=== PATIENT | female | born 1980 | race Caucasian/White ===

== ENCOUNTER 2021-10-27 17:07 | Observation (INO) | payer BC ==
--- OUTSIDE RECORDS SUMMARY | 2021-10-27 17:10 | XMS REPORT | Continuity of Care Document ---
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 Attending Clinician BLOSSOM Attending Clinician Unavailable Doctor Unassigned, Name Attending Clinician Unavailable Payers Payer Name Policy Type Policy Number Effective Date Expiration Date S ource Problems Condition Condition Condition Status Onset Resolution Last Treating Co mments Source Name Details Category Date Date Treatment Clinician Date No known No known Disease Unive rs active active ity of problems problems [facility] Allergies, Adverse Reactions, Alerts Allergy Allergy Status Severity Reaction(s) Onset Inactive Treating Comm ents Source Name Type Date Date Clinician Penicill Propensi Active Unknown - Uni vers in ty to See comments 02-04 ity of adverse 00:00: [place] reaction 00 Medical s Branch PENICILL DRUG Active Unknown-Cmnt Un angeli IN INGREDI 02-04 ity of 00:00: [place] 00 Medical Branch NO KNOWN Drug Active Univers ALLERGIE Class ity of S [facility] Social History Social Habit Start Date Stop Date Quantity Comments Source Exposure to 2021-10-17 2021-10-27 Not sure [facility] SARS-CoV-2 (event) 00:00:00 16:27:00 Medica l Branch Tobacco use and 2021-02-04 2021-02-04 Never used [facility] [place] exposure 00:00:00 00:00:00 Medical Branch Sex Ass[birth year] At [birth year] [facility] 00:00:00 00:00:00 Medical Branch Smoking Status Start Date Stop Date Source Unknown if ever smoked [facility] [place] Never smoker [facility] [place] Medications Ordered Filled Start Stop Current Ordering Indication Dosage Frequency Signature Comments Components Source Medication Medication Date Date Medication? Clinician (SIG) Name Name christy Yes [id number] Apply to Univers ne 7-31 lesions ity of acet[place] 00:00[place] 3[place]d [place] 0.1 % 00 meals Medical dental Branch paste naproxen Yes [id number] 375mg Take 1 U nivers 375 mg 7-31 tablet by ity of tablet 00:00: mouth 2 [place] (two) Medical times Branch daily with meals. triamcinolo Yes [id number] Apply to Univers ne 7-31 lesions ity of acetonide 00:00: 3x/d [place] 0.1 % 00 meals Medical dental Branch paste naproxen Yes [id number] 375mg Take 1 U nivers 375 mg 7-31 tablet by ity of tablet 00:00: mouth 2 [place] (two) Medical times Branch daily with meals. PARAMJIT 24 FE Yes 1{tbl} Take 1 Un angeli 1 mg-20 mcg 7-23 tablet by ity of (24)/75 mg 00:00: mouth [place] (4) per 00 daily. Medical tablet Branch PARAMJIT 24 FE Yes 1{tbl} Take 1 Un angeli 1 mg-20 mcg 7-23 tablet by ity of (24)/75 mg 00:00: mouth [place] (4) per 00 daily. Medical tablet Branch levothyroxi Yes 100ug Take 100 U nivers ne 100 mcg 7-16 mcg by ity of tablet 00:00: mouth. Medical Branch levothyroxi Yes 100ug Take 100 U nivers ne 100 mcg 7-16 mcg by ity of tablet 00:00: mouth. [place] [facility] [place] Vital Signs Vital Name Observation Time Observation Value Comments Source Systolic blood 2021-10-27 21:40:00 185 mm[Hg] Univer sity of pressure [facility] Diastolic blood 2021-10-27 21:40:00 103 mm[Hg] Unive rsity of pressure [place] [facility] [place] Heart rate 2021-10-27 21:40:00 84 /min [facility] [place] [facility] Body temperature 2021-10-27 21:40:00 36.83 Cathy Univ ersity of [place] [facility] Respiratory rate 2021-10-27 21:40:00 17 /min Univ [facility] [place] [facility] Body height 2021-10-27 21:40:00 167.6 cm [facility] [place] [facility] Body weight 2021-10-27 21:40:00 58.968 kg [facility] [place] [facility] BMI 2021-10-27 21:40:00 20.98 kg/m2 [facility] [place] [facility] Oxygen saturation in 2021-10-27 21:40:00 100 /min University of Arterial blood by [facility] Pulse oximetry Branch Systolic blood 2021-02-04 20:29:00 135 mm[Hg] Univer sity of pressure [place] [facility] [place] Diastolic blood 2021-02-04 20:29:00 84 mm[Hg] Unive rsity of pressure [facility] Heart rate 2021-02-04 20:29:00 74 /min [facility] [place] [facility] Body temperature 2021-02-04 20:29:00 36.61 Cathy Univ ersity [facility] [place] [facility] [place] Body height 2021-02-04 20:29:00 167.6 cm [facility] [place] [facility] Body weight 2021-02-04 20:29:00 60.782 kg [facility] [place] [facility] BMI 2021-02-04 20:29:00 21.63 kg/m2 [facility] [place] [facility] Oxygen saturation in 2021-02-04 20:29:00 99 /min University of Arterial blood by [facility] Pulse oximetry Branch Procedures Procedure Date / Time Performed Performing Clinician Sourc e POCT GRP A STREP 2021-02-04 20:52:00 Perry Burns [facility] ([facility]) [facility] Encounters Start End Encounter Admission Attending Care Care Encounter Source Date/Time Date/Time Type Type Clinicians Facility Department ID 2021-10-27 2021-10-27 Nurse Nurse, [facility] [place] [facility] [id number] [facility] 16:30:00 16:50:00 Visit [facility] [id number] ity of [place] [id number] Lexx as JARED?BLEA [phone] Il wilman [address] [facility] 2021-10-27 2021-10-27 Outpatient R [facility] [id number] Univers 16:30:00 16:30:00 [id number] ity [facility] 2021-10-27 2021-10-27 [facility] [id number] Univers 16:30:00 16:30:00 RUBIO [facility] 2021-02-04 2021-02-04 Urgent GrantPerry ceballos [facility] [id number] Univers 15:23:50 15:43:50 [facility] [id number] ity of [place] [id number] Lexx as Professio [phone] Il [address] Office [address] 2021-02-04 2021-02-04 [facility] [id number] Univers 15:40:00 15:40:00 [facility] 2021-02-04 2021-02-04 Letter Doctor SHAHBAZ [id number] Univers 00:00:00 00:00:00 (Out) Unassigned, JESIKA [id number] ity of [place] [facility] [id number] Lexx as [phone] [address] Results Test Description Test Time Test Comments Results Result Comments Source POCT GRP A STREP (MOLECULAR) 2021-02-04 20:52:00 Test Item Value Reference Range Interpretation Comme nts POCT GP A STREP (test code = negative Negative - Negative 21911-7) CHERYL (test code = CHERYL) accurate development and interpretation of all internal controls Lab Interpretation (test code = Normal 68340-1) [facility]
[2021-10-27] MEDS ORDERED: NA CHLORIDE 0.9% 1,000 ML ONE (17:58)
[2021-10-27] MEDS ORDERED: FOLIC ACID 5 MG/ML VIAL ONE (17:59)
--- NOTE | 2021-10-27 18:10 | RAD REPORT ---
EXAM DESCRIPTION: CT - Ct Stroke Brain Wo Cont - 10/27/2021 5:53 pm CLINICAL HISTORY: Numbness COMPARISON: none TECHNIQUE: Computed axial tomography of the head was obtained. All CT scans are performed using dose optimization technique as appropriate and may include automated exposure control or mA/KV adjustment according to patient size. FINDINGS: An intracranial bleed is not seen . The ventricles are normal in caliber. No extra-axial fluid collection is noted. No significant hypodense areas seen Fluid within the sinuses/ mastoids is not seen. IMPRESSION: No acute intracranial abnormality is seen. If patient's symptoms persist MRI of the bra in would be recommended. Doctor Oliveros of the emergency room was notified at 6:05 p.m. October 27, 2021
[2021-10-27 18:13] LABS: Absolute Lymphocytes (CBC) 1.8 K/uL (0.7-4.9); Hematocrit 42.8 % (36.0-45.0); Lymphocytes % 32.2 % (15.3-44.8); MPV 7.2 fL (7.6-11.3); Protime INR 0.9
--- NOTE | 2021-10-27 18:21 | EDPHYS ---
Physician Documentation [facility] Name: Evan Shi Age: 40 yrs Sex: Female : 1980 Arrival Date: 10/27/2021 Time: 17:09 Bed 14 Private MD: Fadia Carrasquillo ED Physician Eusebio Oliveros HPI: 10/27 18:13 This 40 yrs old Female presents to ER via Ambulatory with complaints of ricardo Headache, High Blood Pressure, Numbness Of Face, Numbness Of Arm. 18:13 The patient complains of pain to the top of head, forehead, left ear, left bahai and ricardo left frontal area. 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 - Social history:: Smoking status: Patient denies any tobacco usage or history of. ROS: 18:14 Constitutional: Negative for fever, chills, and weight loss, Eyes: Negative for injury, ricardo pain, redness, and discharge, ENT: Negative for injury, pain, and discharge, Neck: Negative for injury, pain, and swelling, Cardiovascular: Negative for chest pain, palpitations, and edema, Respiratory: Negative for shortness of breath, cough, wheezing, and pleuritic chest pain, Abdomen/GI: Negative for abdominal pain, nausea, vomiting, diarrhea, and constipation, Back: Negative for injury and pain, : Negative for injury, bleeding, discharge, and swelling, MS/Extremity: Negative for injury and deformity, Skin: Negative for injury, rash, and discoloration, Psych: Negative for depression, anxiety, suicide ideation, homicidal ideation, and hallucinations, Allergy/Immunology: Negative for hives, rash, and allergies, Endocrine: Negative for neck swelling, polydipsia, polyuria, polyphagia, and marked weight changes, Hematologic/Lymphatic: Negative for swollen nodes, abnormal bleeding, and unusual bruising. 18:14 Neuro: Positive for numbness. Exam: 18:14 Constitutional: This is a well developed, well nourished patient who is awake, alert, ricardo and in no acute distress. Head/Face: Normocephalic, atraumatic. Eyes: Pupils equal round and reactive to light, extra-ocular motions intact. Lids and lashes normal. Conjunctiva and sclera are non-icteric and not injected. Cornea within normal limits. Periorbital areas with no swelling, redness, or edema. ENT: Nares patent. No nasal discharge, no septal abnormalities noted. Tympanic membranes are normal and external auditory canals are clear. Oropharynx with no redness, swelling, or masses, exudates, or evidence of obstruction, uvula midline. Mucous membranes moist. Neck: Trachea midline, no thyromegaly or masses palpated, and no cervical lymphadenopathy. Supple, full range of motion without nuchal rigidity, or vertebral point tenderness. No Meningismus. Chest/axilla: Normal chest wall appearance and motion. Nontender with no deformity. No lesions are appreciated. Cardiovascular: Regular rate and rhythm with a normal S1 and S2. No gallops, murmurs, or rubs. Normal PMI, no JVD. No pulse deficits. Respiratory: Lungs have equal breath sounds bilaterally, clear to auscultation and percussion. No rales, rhonchi or wheezes noted. No increased work of breathing, no retractions or nasal flaring. Abdomen/GI: Soft, non-tender, with normal bowel sounds. No distension or tympany. No guarding or rebound. No evidence of tenderness throughout. Back: No spinal tenderness. No costovertebral tenderness. Full range of motion. Skin: Warm, dry with normal turgor. Normal color with no rashes, no lesions, and no evidence of cellulitis. MS/ Extremity: Pulses equal, no cyanosis. Neurovascular intact. Full, normal range of motion. Neuro: Awake and alert, GCS 15, oriented to person, place, time, and situation. Cranial nerves II-XII grossly intact. Motor strength 5/5 in all extremities. Sensory grossly intact. Cerebellar exam normal. Normal gait. Psych: Awake, alert, with orientation to person, place and time. Behavior, mood, and affect are within normal limits. 18:14 Musculoskeletal/extremity: DVT Exam: No signs of deep vein thrombosis. no pain, no swelling, no tenderness, negative Homans' sign noted on exam, no appreciated bluish discoloration, no erythema, no increased warmth. 18:14 Neuro: Orientation: is normal, appropriate for stated age, no acute changes, Mentation: is normal, appropriate for stated age, no acute changes, Memory: is normal, appropriate for stated age, no acute changes, Cranial nerves: grossly normal, is grossly normal based on the patient's age, no acute changes, Cerebellar function: is grossly normal, is grossly normal based on the patient's age, no acute changes, Motor: is normal, is grossly normal based on the patient's age, no acute changes, moves all fours, strength is normal, strength is 5/5 in all extremities, Sensation: light touch is decreased in the face, left hand and left arm, Gait: is steady, appropriate for age, is unsteady, Babinski testing is normal, seizure activity, is not displayed by the patient. 18:23 ECG was reviewed by the Attending Physician. [facility] Vital Signs: 17:46 BP 181 / 111; Pulse 99; Resp 16; Temp 98.9(O); Pulse Ox 100% on R/A; Weight 58.97 kg jb4 (R); Height 5 ft. 3 in. (160.02 cm) (R); Pain 0/10; 17:48 BP 157 / 87; Pulse 93; Resp 15; Pulse Ox 100% ; jl7 19:15 BP 130 / 91; Pulse 90; Resp 17 S; Pulse Ox 98% on R/A; al4 20:25 BP 149 / 94; Pulse 95; Resp 14; Pulse Ox 98% ; Pain 2/10; al4 21:15 BP 139 / 94; Pulse 83; Resp 19 S; Pulse Ox 98% on R/A; al4 17:46 Body Mass Index 23.03 (58.97 kg, 160.02 cm) jb4 NIH Stroke Scale Scores: 17:55 NIHSS Score: 1 jl7 20:29 NIHSS Score: 0 al4 Warner Coma Score: 18:16 Eye Response: spontaneous(4). Verbal Response: oriented(5). Motor Response: obeys ricardo commands(6). Total: 15. MDM: 17:41 Patient medically screened. ricardo 18:16 Differential diagnosis: cerebral vascular accident, hypoglycemia, hyponatremia, ricardo subarachnoid bleed, subdural hematoma, temporal arteritis. Data reviewed: vital signs, nurses notes, lab test result(s), EKG, radiologic studies, CT scan, plain films. 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 Test interpretation: by ED physician or midlevel provider: ECG, plain radiologic studies. Counseling: I had a detailed discussion with the patient and/or guardian regarding: the historical points, exam findings, and any diagnostic results supporting the discharge/admit diagnosis, lab results, radiology results, the need for further work-up and treatment in the hospital. Physician consultation: Freedom Lucio MD was contacted at 18:25, regarding consult, patient's condition, and will see patient in inpatient room, keep here if cta head and neck negative. 18:18 ED course: dr lucio , began at 10 am,no tnk/tpa. 10/27 17:43 Order name: Basic Metabolic Panel; Complete Time: 18:45 10/27 17:43 Order name: CBC with Diff; Complete Time: 19:11 10/27 17:43 Order name: LFT's; Complete Time: 18:45 10/27 17:43 Order name: Magnesium; Complete Time: 18:45 10/27 17:43 Order name: NT PRO-BNP; Complete Time: 18:45 10/27 17:43 Order name: PT-INR; Complete Time: 18:39 10/27 17:43 Order name: Troponin HS; Complete Time: 18:45 10/27 17:43 Order name: Sed Rate; Complete Time: 19:11 10/27 17:43 Order name: CRP; Complete Time: 18:45 10/27 17:44 Order name: Urine Culture 10/27 18:02 Order name: Glucose, Ancillary Testing; Complete Time: 18:12 EDME 10/27 18:24 Order name: Lipid Profile; Complete Time: 18:45 EDME 10/27 18:25 Order name: TSH; Complete Time: 19:11 10/27 17:43 Order name: XRAY Chest (1 view); Complete Time: 19:48 10/27 17:43 Order name: EKG; Complete Time: 17:44 10/27 17:43 Order name: Cardiac monitoring; Complete Time: 17:51 10/27 17:43 Order name: CT Stroke Brain w/o Contrast; Complete Time: 18:12 [facility] 10/27 17:43 Order name: CT Head Angio; Complete Time: 19:48 [facility] 10/27 17:43 Order name: CT Neck Angio; Complete Time: 19:48 [facility] 10/27 19:22 Order name: COVID-19/FLU A+B (Document "Date of Onset" if Symptomatic); Complete Time: tw5 22:03 10/27 21:05 Order name: Urine Dipstick-Ancillary; Complete Time: 22:03 EDME 10/27 21:16 Order name: Urine --Ancillary (enter results) 10/27 21:26 Order name: Urine --Ancillary; Complete Time: 22:03 EDME 10/27 17:43 Order name: EKG - Nurse/Tech; Complete Time: 17:59 [facility] 10/27 17:43 Order name: IV Saline Lock; Complete Time: 17:51 [facility] 10/27 17:43 Order name: Labs collected and sent; Complete Time: 17:51 [facility] 10/27 17:43 Order name: O2 Per Protocol; Complete Time: 17:51 [facility] 10/27 17:43 Order name: O2 Sat Monitoring; Complete Time: 17:59 [facility] 10/27 17:44 Order name: Urine Dipstick-Ancillary (obtain specimen); Complete Time: 21:06 [facility] 10/27 17:44 Order name: Urine Test (obtain specimen); Complete Time: 21:06 [facility] EC:23 Rate is 88 beats/min. Rhythm is regular. QRS [place] is Normal. SC interval is normal. QRS ricardo interval is normal. QT interval is normal. No Q waves. T waves are Normal. No ST changes noted. Clinical impression: Normal ECG and No evidence of ischemia. Interpreted by me. Reviewed by me. Administered Medications: 17:55 Drug: NS 0.9% 1000 ml Route: IV; Rate: 1 bolus; Site: right antecubital; jl7 20:30 Follow up: Response: No adverse reaction; IV Status: Completed infusion al4 17:55 Drug: foLIC Acid 1 mg Route: IVPB; Site: right antecubital; jl7 18:27 Drug: Aspirin Chewable Tablet 324 mg Route: PO; jl7 18:39 CANCELLED (Inappropriate at this time): Nicoderm CQ Patch 21 mg/24 hr 1 patches jl7 Transdermal once 20:21 Drug: Lipitor (atorvastatin) 20 mg Route: PO; al4 21:04 Follow up: Response: No adverse reaction; Anat DAWSON at bedside to explain to patient al4 about administration before RN gave med 20:55 Drug: Ketorolac 15 mg Route: IVP; Site: right antecubital; al4 21:48 Follow up: Response: No adverse reaction al4 Point of Care Testing: Blood Glucose: 17:48 Blood Glucose: 100 mg/dL; jl7 Ranges: Critical Glucose Levels:Adult <50 mg/dl or >400 mg/dl <40 mg/dl or >180 mg/dl Disposition Summary: 10/27/21 18:20 Hospitalization Ordered Hospitalization Status: Observation ricardo Provider: Nathan Veronica cha Condition: Stable ricardo Problem: new ricardo Symptoms: have improved ricardo Bed/Room Type: Standard ricardo Location: [facility] [place] ER HOLD(10/27/21 19:27) mw Room Assignment: ERHOLD-(10/27/21 19:27) Diagnosis - Paresthesia of skin ricardo - Transient cerebral ischemic attack, unspecified ricardo Forms: - Medication Reconciliation Form ricardo - SBAR form ricardo NIH Stroke Scale - NIH Stroke Score Date: 10/27/2021 Time: 17:55 Total Score = 1 1a. Level of Consciousness (LOC) - 0(Alert) 1b. Level of Consciousness (LOC) (Month \\T\\ Age) - 0(Both) 1c. 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 Best Gaze (Lateral Gaze Paresis) - 0(Normal) 3. Visual Field Loss - 0(No visual loss) 4. Facial Palsy - 0(Normal) 5a. Left Arm: Motor (10-second hold) - 0(No drift) 5b. Right Arm: Motor (10-second hold) - 0(No drift) 6a. Left Leg: Motor (5-second hold - always test supine) - 0(No drift) 6b. Right Leg: Motor (5-second hold - always test supine) - 0(No drift) 7. Limb Ataxia (finger/nose \\T\\ heel/grubbs - test with eyes open) - 0(Absent) 8. Sensory Loss (pinprick arms/legs/face) - 1(Mild to moderate loss) 9. Best Language: Aphasia (description/naming/reading) - 0(No aphasia) 10. Dysarthria (speech clarity - read or repeat words) - 0(Normal) 11. Extinction and Inattention (visual/tactile/auditory/spatial/personal) - 0(No abnormality) Initials: jl7 NIH Stroke Scale - NIH Stroke Score Date: 10/27/2021 Time: 20:29 Total Score = 0 1a. Level of Consciousness (LOC) - 0(Alert) 1b. Level of Consciousness (LOC) (Month \\T\\ Age) - 0(Both) 1c. 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 Best Gaze (Lateral Gaze Paresis) - 0(Normal) 3. Visual Field Loss - 0(No visual loss) 4. Facial Palsy - 0(Normal) 5a. Left Arm: Motor (10-second hold) - 0(No drift) 5b. Right Arm: Motor (10-second hold) - 0(No drift) 6a. Left Leg: Motor (5-second hold - always test supine) - 0(No drift) 6b. Right Leg: Motor (5-second hold - always test supine) - 0(No drift) 7. Limb Ataxia (finger/nose \\T\\ heel/grubbs - test with eyes open) - 0(Absent) 8. Sensory Loss (pinprick arms/legs/face) - 0(Normal) 9. Best Language: Aphasia (description/naming/reading) - 0(No aphasia) 10. Dysarthria (speech clarity - read or repeat words) - 0(Normal) 11. Extinction and Inattention (visual/tactile/auditory/spatial/personal) - 0(No abnormality) Initials: al4 Signatures: Dispatcher [employer] EDMS Brenda Pizano RN RN mw Anderson, Corey, MD MD cha Bryson, James RN RN jb4 Mak Machuca RN RN jl7 Onesimo Marquez4 Dayan Beltran PA PA sb3 Corrections: (The following items were deleted from the chart) 18:24 18:15 LIPID PROFILE+[id number] ordered. EDME EDMS 18:26 17:48 Home Meds: None; Claudia jl7 18:26 17:48 PMHx: None; Claudia jl7 18:39 18:39 Nicoderm CQ Patch 21 mg/24 hr 1 patches Transdermal once ordered. jl7 jl7 18:20 Telemetry/MedSurg (observation) [facility] 18:20 [facility]
--- NOTE | 2021-10-27 18:21 | ER ---
Nurse's Notes [facility] Name: Evan Shi Age: 40 yrs Sex: Female : 1980 Arrival Date: 10/27/2021 Time: 17:09 Bed 14 Private MD: Fadia Carrasquillo Diagnosis: Paresthesia of skin;Transient cerebral ischemic attack, unspecified Presentation: 10/27 17:46 Chief complaint: Patient states: I started having facial numbness and left arm numbness jb4 around 10 am today. It suddenly got worse around noon. Coronavirus screen: At this time, the client does not indicate any symptoms associated with coronavirus-19. Ebola Screen: No symptoms or risks identified at this time. Initial Sepsis Screen: Does the patient meet any 2 criteria? No. Patient's initial sepsis screen is negative. Does the patient have a suspected source of infection? No. Patient's initial sepsis screen is negative. Risk Assessment: Do you want to hurt yourself or someone else? Patient reports no desire to harm self or others. Onset of symptoms was October 27, 2021. Transition of care: patient was not received from another setting of care. 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 - Social history:: Smoking status: Patient denies any tobacco usage or history of. Screenin:55 Abuse screen: Denies threats or abuse. Denies injuries from another. Nutritional jl7 screening: No deficits noted. Tuberculosis screening: No symptoms or risk factors identified. Fall Risk IV access (20 points). Total Schreiber Fall Scale indicates No Risk (0-24 pts). Assessment: 17:55 VAN Scoring: Arm Drift: Patients demonstrates NO arm weakness. Patient is VAN Negative. jl7 The patient has not been NPO before screening. The patient is currently on the following diet: home The patient is alert, and able to follow commands. The patient does not exhibit slurred or garbled speech. The patient is not exhibiting difficulty speaking. The patient does not exhibit difficulty understanding words. The patient is able to swallow own secretions with no drooling or need for suction. Patient tolerated one teaspoon of water. No drooling, immediate coughing, gurgling, or clearing of the throat was noted. The patient tolerated 90mL of water. No drooling, immediate coughing, gurgling, or clearing of the throat was noted. The patient passed the bedside swallow screening. Oral medications may be given as ordered. Contact Physician for further diet orders. Provider notified of bedside swallow screening results: Eusebio Oliveros MD. T-PA (Activase) Screening: Contraindications: Patient reports onset of signs and symptoms of stroke greater than 6 hours ago: Yes. General: Appears in no apparent distress. uncomfortable, Behavior is calm, cooperative, appropriate for age. Pain: Complains of pain in mild GUTIERREZ. Neuro: Level of Consciousness is awake, alert, obeys commands, Oriented to person, place, time, situation. Cardiovascular: Patient's skin is warm and dry. Respiratory: Airway is patent Respiratory effort is even, unlabored, Respiratory pattern is regular, symmetrical. Derm: Skin is pink, warm \\T\\ dry. 20:20 General: Appears in no apparent distress. comfortable, Behavior is calm, cooperative, al4 patient states her symptoms including numbness have improved since she was last asked. . Pain: Complains of pain in head. Neuro: Level of Consciousness is awake, alert, obeys commands, Oriented to person, place, time, situation, Speech is normal. Respiratory: Airway is patent Respiratory effort is unlabored, Respiratory pattern is regular. Derm: Skin is pink, warm \\T\\ dry. Musculoskeletal: Circulation, motion, and sensation intact. 21:06 Reassessment: Patient appears in no apparent distress at this time. Patient and/or al4 family updated on plan of care and expected duration. Pain level reassessed. Patient is alert, oriented x 3, equal unlabored respirations, skin warm/dry/pink. Vital Signs: 17:46 BP 181 / 111; Pulse 99; Resp 16; Temp 98.9(O); Pulse Ox 100% on R/A; Weight 58.97 kg jb4 (R); Height 5 ft. 3 in. (160.02 cm) (R); Pain 0/10; 17:48 BP 157 / 87; Pulse 93; Resp 15; Pulse Ox 100% ; jl7 19:15 BP 130 / 91; Pulse 90; Resp 17 S; Pulse Ox 98% on R/A; al4 20:25 BP 149 / 94; Pulse 95; Resp 14; Pulse Ox 98% ; Pain 2/10; al4 21:15 BP 139 / 94; Pulse 83; Resp 19 S; Pulse Ox 98% on R/A; al4 17:46 Body Mass Index 23.03 (58.97 kg, 160.02 cm) jb4 Vijaya Coma Score: 18:16 Eye Response: spontaneous(4). Verbal Response: oriented(5). Motor Response: obeys ricardo commands(6). Total: 15. NIH Stroke Scale Scores: 17:55 NIHSS Score: 1 jl7 20:29 NIHSS Score: 0 al4 ED Course: 17:09 Patient arrived in ED. mr 17:10 Davie Carrasquilloa is Private Physician. mr 17:38 Mak Machuca, RANDA is Primary Nurse. jl7 17:41 Eusebio Oliveros MD is Attending Physician. ricardo 17:48 Triage completed. jb4 17:48 Arm band placed on right wrist. jb4 17:52 Inserted saline lock: 20 gauge in left antecubital area, using aseptic technique. vg1 17:55 CT Stroke Brain w/o Contrast In Process Unspecified. EDMS 17:55 Patient has correct armband on for positive identification. Bed in low position. Call [facility] light in reach. Side rails up X 1. alarm security or surveillance monitor on. Pulse ox on. NIBP on. Warm blanket given. 17:55 Initial lab(s) drawn, by nj, sent to lab. EKG done, by ED staff, reviewed by Eusebio Oliveros MD. Inserted saline lock: 20 gauge in right antecubital area, using aseptic technique. Blood collected. 18:19 Nathan Veronica MD is Hospitalizing Provider. ricardo 18:36 XRAY Chest (1 view) In Process Unspecified. EDMS 19:06 CT Head Angio In Process Unspecified. EDMS 19:06 CT Neck Angio In Process Unspecified. EDMS 21:06 COVID-19/FLU A+B (Document "Date of Onset" if Symptomatic) Sent. al4 21:30 No provider procedures requiring assistance completed. Patient admitted, IV remains in al4 place. 22:21 Primary Nurse role handed off by Mak Machuca RN cs9 Administered Medications: 17:55 Drug: NS 0.9% 1000 ml Route: IV; Rate: 1 bolus; Site: right antecubital; jl7 20:30 Follow up: Response: No adverse reaction; IV Status: Completed infusion al4 17:55 Drug: foLIC Acid 1 mg Route: IVPB; Site: right antecubital; jl7 18:27 Drug: Aspirin Chewable Tablet 324 mg Route: PO; jl7 18:39 CANCELLED (Inappropriate at this time): Nicoderm CQ Patch 21 mg/24 hr 1 patches jl7 Transdermal once 20:21 Drug: Lipitor (atorvastatin) 20 mg Route: PO; al4 21:04 Follow up: Response: No adverse reaction; Anat DAWSON at bedside to explain to patient al4 about administration before RN gave med 20:55 Drug: Ketorolac 15 mg Route: IVP; Site: right antecubital; al4 21:48 Follow up: Response: No adverse reaction al4 Point of Care Testing: Blood Glucose: 17:48 Blood Glucose: 100 mg/dL; jl7 Ranges: Intake: Outcome: 18:20 Decision to Hospitalize by Provider. ricardo 21:30 Admitted to Report called to Ally Mccord RN al4 21:30 Condition: stable 21:30 Instructed on the need for admit, Demonstrated understanding of instructions. 10/28 12:58 Patient left the ED. NIH Stroke Scale - NIH Stroke Score Date: 10/27/2021 Time: 17:55 Total Score = 1 1a. Level of Consciousness (LOC) - 0(Alert) 1b. Level of Consciousness (LOC) (Month \\T\\ Age) - 0(Both) 1c. LOC Commands (Open \\T\\ Closes Eyes/Core Cutter And Reamer) - 0(Both) 2. Best Gaze (Lateral Gaze Paresis) - 0(Normal) 3. Visual Field Loss - 0(No visual loss) 4. Facial Palsy - 0(Normal) 5a. Left Arm: Motor (10-second hold) - 0(No drift) 5b. Right Arm: Motor (10-second hold) - 0(No drift) 6a. Left Leg: Motor (5-second hold - always test supine) - 0(No drift) 6b. Right Leg: Motor (5-second hold - always test supine) - 0(No drift) 7. Limb Ataxia (finger/nose \\T\\ heel/grubbs - test with eyes open) - 0(Absent) 8. Sensory Loss (pinprick arms/legs/face) - 1(Mild to moderate loss) 9. Best Language: Aphasia (description/naming/reading) - 0(No aphasia) 10. Dysarthria (speech clarity - read or repeat words) - 0(Normal) 11. Extinction and Inattention (visual/tactile/auditory/spatial/personal) - 0(No abnormality) Initials: jl7 NIH Stroke Scale - NIH Stroke Score Date: 10/27/2021 Time: 20:29 Total Score = 0 1a. Level of Consciousness (LOC) - 0(Alert) 1b. Level of Consciousness (LOC) (Month \\T\\ Age) - 0(Both) 1c. LOC Commands (Open \\T\\ Closes Eyes/Core Cutter And Reamer) - 0(Both) 2. Best Gaze (Lateral Gaze Paresis) - 0(Normal) 3. Visual Field Loss - 0(No visual loss) 4. Facial Palsy - 0(Normal) 5a. Left Arm: Motor (10-second hold) - 0(No drift) 5b. Right Arm: Motor (10-second hold) - 0(No drift) 6a. Left Leg: Motor (5-second hold - always test supine) - 0(No drift) 6b. Right Leg: Motor (5-second hold - always test supine) - 0(No drift) 7. Limb Ataxia (finger/nose \\T\\ heel/grubbs - test with eyes open) - 0(Absent) 8. Sensory Loss (pinprick arms/legs/face) - 0(Normal) 9. Best Language: Aphasia (description/naming/reading) - 0(No aphasia) 10. Dysarthria (speech clarity - read or repeat words) - 0(Normal) 11. Extinction and Inattention (visual/tactile/auditory/spatial/personal) - 0(No abnormality) Initials: al4 Signatures: Dispatcher [employer] EDMS Eusebio Oliveros MD MD cha Rivera, Isela Sauer RN RN ph Bryson, James, RN RN jb4 Mak Machuca RN RN jl7 Brianna Rea RN RN 1 Gianna Camilo 9 Onesimo Marquez al4 Corrections: (The following items were deleted from the chart) 10/27 18: 17:48 Home Meds: None; jbClaudia jl7 17:48 PMHx: None; john jl7 22:12 20:20 General: Appears in no apparent distress. comfortable, Behavior is calm, maxim cooperative, maxim 21:30 Admitted to Report called to RANDA Canales al4 al4
[2021-10-27] MEDS ORDERED: ASPIRIN 81 MG CHEWABLE TABLET ONE (18:27)
[2021-10-27 18:34] LABS: ALT/SGPT 24 U/L (12-78); AST/SGOT 13 U/L (15-37); Albumin 4.3 g/dL (3.4-5.0); Alkaline Phosphatase 55 U/L (45-117); BUN Blood Urea Nitrogen 9 mg/dL (7-18); Bicarbonate 26 mmol/L (21-32); Bilirubin Total 0.3 mg/dL (0.2-1.0); C-Reactive Protein 5.34 mg/L (<3.00); Glucose Level 111 mg/dL (74-106); HDL Cholesterol 70 mg/dL (40-60); LDL Cholesterol, Calculated 87 mg/dL (<130); Magnesium 2.4 mg/dL (1.8-2.4); NT PRO-BNP 40 pg/mL (<125); Potassium 3.8 mmol/L (3.5-5.1); Protein, Total 8.6 g/dL (6.4-8.2); Sodium Level 140 mmol/L (136-145); Troponin High Sensitivity 3.1 pg/mL (<58.9)
[2021-10-27 18:41] LABS: Bilirubin Direct < 0.1 mg/dL (0-0.2)
--- NOTE | 2021-10-27 19:23 | RAD REPORT ---
EXAM DESCRIPTION: CTHead angio10/27/2021 7:04 pm CLINICAL HISTORY: Numbness COMPARISON: None TECHNIQUE: CT angiogram of the head was obtained. 3D MIPS reconstruction performed. All CT scans are performed using dose optimization technique as appropriate and may include automated exposure control or mA/KV adjustment according to patient size. FINDINGS: The basilar, internal carotid, anterior cerebral, middle cerebral and posterior cerebral a rteries are normal caliber. An aneurysm is not seen. A significant stenosis is not noted. IMPRESSION: No acute abnormality is displayed
--- NOTE | 2021-10-27 19:26 | RAD REPORT ---
EXAM DESCRIPTION: Pavel Angio10/27/2021 7:04 pm CLINICAL HISTORY: Numbness COMPARISON: None TECHNIQUE: 50 cc Isovue 370 was administered intravenously. 3D MIP reconstruction performed All CT scans are performed using dose optimization technique as appropriate and may include automated exposure control or mA/KV adjustment according to patient size. FINDINGS: The common carotid, internal carotid and external carotid arteries do not demonstrate plaq ue. The right vertebral artery is somewhat hypoplastic. It terminates into the PICA. Left vertebral arter y unremarkable. No dissection. No significant stenosis IMPRESSION: Unremarkable exam NASCET criteria used. Mild 0-49% stenosis Moderate 50-69% stenosis Severe 70-99% stenosis
--- NOTE | 2021-10-27 19:34 | RAD REPORT ---
EXAM DESCRIPTION: Adelaida Single View10/27/2021 6:34 pm CLINICAL HISTORY: Hypertension/cough COMPARISON: none FINDINGS: The lungs appear clear of acute infiltrate. The heart is normal size IMPRESSION: No acute abnormalities displayed
[2021-10-27] MEDS ORDERED: ATORVASTATIN 20 MG TAB ONE (20:16)
[2021-10-27] MEDS ORDERED: KETOROLAC 30 MG/ML INJ ONE ×2 (20:52→20:57)
[2021-10-27 21:05] LABS: Urine Blood Trace-intact (Negative); Urine Glucose Negative (Negative); Urine Protein Negative (Negative)
[2021-10-27 21:56] LABS: SARS-COV-2 RT PCR NEGATIVE (NEGATIVE)
--- NOTE | 2021-10-27 21:59 | P.HP ---
Certification for Inpatient Patient admitted to: Observation With expected LOS: <2 Midnights Patient will require the following post-hospital care: None Practitioner: I am a practitioner with admitting privileges, knowledge of patient current condition, hospital course, and medical plan of care. Services: Services provided to patient in accordance with Admission requirements found in Title 42 Section 412.3 of the Code of Federal Regulations Patient History Date of Service: 10/27/21 Reason for admission: TIA History of Present Illness: Patient is a 40-year-old female with Therese's thyroiditis otherwise healthy who presented to the ED with complaints of left-sided facial and left arm numbness that began around 10 AM. She reports she went to urgent care after work and her blood pressure was elevated at 180/104 so they sent her to the ED. CT head and CT head/neck angio negative for acute processes. CRP elevated at 5.34. Other labs including lipid panel within normal limits. Dr. Hirsch notified. Patient was given 1 L fluid, folic acid, 324 mg aspirin, 20 mg atorvastatin. Upon my assessment, patient reports that the numbness in her face has improved but is still somewhat there, expressing some decreased sensation on that side of her face. She is also complaining of a headache. No deficits noted on neurologic exam. her blood pressure has come down to 130/91 without antihypertensives. Will admit patient for observation. Home medications list reviewed: Yes - Past Medical/Surgical History Diabetic: No -: Therese's thyroiditis -: Migraine Past Surgical History: Patient denies surgical history Psychosocial/ Personal History: Patient works in . She lives at home with her . - Family History Family History: Reviewed- Non-Contributory - Social History Smoking Status: Never smoker Alcohol use: No CD- Drugs: No Caffeine use: No Place of Residence: Home Review of Systems Neurological: As per HPI Physical Examination - Physical Exam General: Alert, In no apparent distress, Oriented x3 HEENT: Atraumatic, PERRLA, Mucous membr. moist/pink, EOMI, Sclerae nonicteric Neck: Supple, 2+ carotid pulse no bruit, No LAD, Without JVD or thyroid abnormality Respiratory: Clear to auscultation bilaterally, Normal air movement Cardiovascular: Regular rate/rhythm, Normal S1 S2 Gastrointestinal: Normal bowel sounds, No tenderness Musculoskeletal: No tenderness Integumentary: No rashes Neurological: Normal gait, Normal speech, Normal strength at 5/5 x4 extr, Normal tone, Sensation intact, Cranial nerves 3-12 intact, Normal reflexes 2+, Normal affect - Studies Laboratory Data (last 24 hrs) 10/27/21 18:14: Triglycerides Cancelled, Cholesterol Cancelled, HDL Cholesterol Cancelled, Cholesterol/HDL Ratio Cancelled 10/27/21 17:56: PT 9.9, INR 0.90 10/27/21 17:56: WBC 5.7, Hgb 14.7, Hct 42.8, Plt Count 318 10/27/21 17:56: Sodium 140, Potassium 3.8, BUN 9, Creatinine 0.85, Glucose 111 H, Magnesium 2.4, Total Bilirubin 0.3, AST 13 L, ALT 24, Alkaline Phosphatase 55, Triglycerides 113, Cholesterol 180, HDL Cholesterol 70 H, Cholesterol/HDL Ratio 2.57 Assessment and Plan - Problems (Diagnosis) (1) TIA (transient ischemic attack) Current Visit: Yes Status: Acute - Plan -CT head and CT head/neck angiogram negative. -Patient given folic acid, aspirin, and atorvastatin in the ED. Dr. Hirsch notified. -We will monitor overnight. Pend Dr. Hirsch's recommendation Discharge Plan: Home Plan to discharge in: 24 Hours - Advance Directives Does patient have a Living Will: No Does patient have a Durable POA for Healthcare: No - Code Status/Comfort Care Code Status Assessed: Yes (Full) Critical Care: No Time Spent Managing Pts Care (In Minutes): 50
[2021-10-27 23:02] VITALS: BMI 20.9
[2021-10-27] MEDS ORDERED: ACETAMINOPHEN 500 MG TAB PO PRN (23:22)
[2021-10-27] MEDS ORDERED: ONDANSETRON 4 MG/2 ML VIAL IV PRN (23:22)
[2021-10-28] MEDS ORDERED: ENOXAPARIN 40 MG/0.4 ML SQ SCH (09:00)
[2021-10-28] MEDS ORDERED: FOLIC ACID 1 MG TABLET PO SCH (09:00)
--- NOTE | 2021-10-28 12:19 | P.DS ---
Discharge Date: 10/28/21 Disposition: ROUTINE DISCHARGE Discharge Condition: GOOD Reason for Admission: TIA Brief History of Present Illness: Patient is a 40-year-old female with Therese's thyroiditis otherwise healthy who presented to the ED with complaints of left-sided facial and left arm numbness that began around 10 AM. She reports she went to urgent care after work and her blood pressure was elevated at 180/104 so they sent her to the ED. CT head and CT head/neck angio negative for acute processes. CRP elevated at 5.34. Other labs including lipid panel within normal limits. Dr. Hirsch notified. Patient was given 1 L fluid, folic acid, 324 mg aspirin, 20 mg atorvastatin. Upon my assessment, patient reports that the numbness in her face has improved but is still somewhat there, expressing some decreased sensation on that side of her face. She is also complaining of a headache. No deficits noted on neurologic exam. her blood pressure has come down to 130/91 without antihypertensives. Will admit patient for observation. Vital Signs/Physical Exam: Temp Pulse Resp BP Pulse Ox 97.9 F 69 18 139/87 98 10/28/21 08:00 10/28/21 08:00 10/28/21 08:00 10/28/21 08:00 10/28/21 08:00 Laboratory Data at Discharge: WBC 5.7 K/uL (4.3-10.9) 10/27/21 17:56 Hgb 14.7 g/dL (12.0-15.0) 10/27/21 17:56 Hct 42.8 % (36.0-45.0) 10/27/21 17:56 Plt Count 318 K/uL (152-406) 10/27/21 17:56 PT 9.9 SECONDS (9.5-12.5) 10/27/21 17:56 INR 0.90 10/27/21 17:56 Sodium 140 mmol/L (136-145) 10/27/21 17:56 Potassium 3.8 mmol/L (3.5-5.1) 10/27/21 17:56 BUN 9 mg/dL (7-18) 10/27/21 17:56 Creatinine 0.85 mg/dL (0.55-1.3) 10/27/21 17:56 Glucose 111 mg/dL (74-106) H 10/27/21 17:56 Magnesium 2.4 mg/dL (1.8-2.4) 10/27/21 17:56 Total Bilirubin 0.3 mg/dL (0.2-1.0) 10/27/21 17:56 AST 13 U/L (15-37) L 10/27/21 17:56 ALT 24 U/L (12-78) 10/27/21 17:56 Alkaline Phosphatase 55 U/L (45-117) 10/27/21 17:56 Triglycerides Cancelled 10/27/21 18:14 Cholesterol Cancelled 10/27/21 18:14 HDL Cholesterol Cancelled 10/27/21 18:14 Cholesterol/HDL Ratio Cancelled 10/27/21 18:14 Home Medications: Levothyroxine [Synthroid*] 100 mcg PO DAILY 10/27/21 Aspirin [Aspirin EC 81 MG] 162 mg PO DAILY #60 tablet. 10/28/21 Atorvastatin Calcium [Lipitor] 10 mg PO BEDTIME #30 tab 10/28/21 New Medications: Aspirin [Aspirin EC 81 MG] 162 mg PO DAILY #60 tablet. Atorvastatin Calcium [Lipitor] 10 mg PO BEDTIME #30 tab Physician Discharge Instructions: -DC IV and DC home -Follow-up with PCP in 1 to 2 weeks-patient will need MRI scheduled -Follow-up with NEURology in 1 to 2 weeks -Please call Dr. Veronica at [phone] if any questions regarding hospital stay -Please call nursing station at [phone] if any nursing or medication questions -Return to the emergency room if symptoms worsen Diet: AHA Activity: Fall precautions Followup: Fadia Carrasquillo NP [Primary Care Provider] -
[2021-10-28 12:53] VITALS: BP 126/79; TEMP 97.8
[2021-10-28 13:40] VITALS: O2SAT 98
== END 2021-10-28 12:57 | disposition home or self-care (01) ==
LOC: ER 17:07 → ERHOLD 20:38
PROVIDERS: ADMIT Hospitalist; ATTEND Hospitalist
DX: G45.9 Transient cerebral ischemic attack, unspecified (principal); E06.3 Autoimmune thyroiditis; R51.9 Headache, unspecified; R29.701 NIHSS score 1; Z88.0 Allergy status to penicillin; Z20.822 Contact with and (suspected) exposure to COVID-19
CPT/HCPCS: 96361; 93005; 87088; 85025; 87086; 80048; 36415; 83735; 81025; 85610; 80061; 82947; 80076; 85652; 84443; 81003; 84484; 83880; 0240U; 86140; 70496; 70498; 70450; 71045; 96375; 96374; 99285; Q9967; J7030; G0378 ×3